=== PATIENT | female | born 1995 | race Caucasian/White ===

== ENCOUNTER 2017-04-02 13:33 | Emergency (ER) | payer OTHER ==
[2017-04-02 13:38] VITALS: BP 147/69; PULSE 125; RESP 18; TEMP 100.1
--- NOTE | 2017-04-02 13:59 | ED ---
General Adult HPI - General Chief complaint: Skin/Abscess/Foreign Body Stated complaint: Back Pain Source: patient, family, RN notes reviewed Mode of arrival: ambulatory Limitations: no limitations - History of Present Illness Initial comments: Chief complaint and history of present illness a 29-year-old female here with her grandmother. The patient has developing pilonidal abscess. She's been on Jones for pain and Bactrim prescribed by another hospital 2 days ago. Patient states the pain is getting progressively worse. She presents today with a fever 100.1. - Related Data Home Medications Medication Instructions Recorded Confirmed HYDROcodone/APAP 7.5-325MG [Jones 1 tab PO Q4H PRN 04/02/17 04/02/17 7.5-325] Sulfamethox-Tmp 800-160Mg [Bactrim 1 tab PO BID 04/02/17 04/02/17 DS 800-160 mg] Allergies Allergy/AdvReac Type Severity Reaction Status Date / Time No Known Allergies Allergy Verified 04/02/17 13:43 Review of Systems ROS Statement: Those systems with pertinent positive or pertinent negative responses have been documented in the HPI. Review of systems no other complaints this time no complaint of headache or sore throat. No chest pain or shortness of breath. No difficulty urinating. She does have a developing pilonidal abscess. No neuro deficits. All systems are reviewed. Patient denies any chronic medical problems. Surgeries include tonsillectomy. Family history grandmother had ovarian cancer. Patient denies ALLERGIES nonsmoker nondrinker. ROS Other: All systems not noted in ROS Statement are negative. Past Medical History Past Medical History: No Reported History History of Any Multi-Drug Resistant Organisms: None Reported Past Surgical History: Tonsillectomy Past Psychological History: No Psychological Hx Reported Smoking Status: Current every day smoker Past Alcohol Use History: None Reported Past Drug Use History: None Reported General Exam - General Exam Comments Initial Comments: General: The patient is awake and alert, complains of pain in the gluteal cleft. Diagnosed with developing pilonidal abscess starting 2 days ago. Vital signs temperature 100.1 pulse 125 respiratory rate 18 pulse ox 98% room air blood pressure 147/69. Eye: Pupils are equal, round and reactive to light, extra-ocular movements are intact ; there is normal conjunctiva bilaterally. No signs of icterus. Ears, nose, mouth and throat: There are moist mucous membranes and no oral lesions. Neck: The neck is supple, there is no tenderness Cardiovascular: Tachycardic heart rate, patient is febrile.. No murmur, rub or gallop is appreciated. Respiratory: Lungs are clear to auscultation, respirations are non-labored, breath sounds are equal. No wheezes, stridor, rales, or rhonchi. Gastrointestinal: Soft, non-distended, non-tender abdomen without masses or organomegaly noted. There is no rebound or guarding present. No CVA tenderness. Bowel sounds are unremarkable. Donation of the gluteal cleft with the assistance of fiorella finds read tender developing pilonidal abscess. Patient is particularly hairy. Back: There is no tenderness to palpation in the midline. There is no obvious deformity. Developing pilonidal abscess. Musculoskeletal: Normal ROM, no tenderness, There is no pedal edema. There is no calf tenderness or swelling. Sensation intact. Neurological: No complaints of any neuro deficits. Skin: No complaint of any rashes. Limitations: no limitations Course Vital Signs 04/02/17 13:34 Temperature 100.1 F H Pulse Rate 125 H Respiratory 18 Rate Blood Pressure 147/69 O2 Sat by Pulse 98 Oximetry Procedures - Procedures Initial comment: Procedure; patient gave permission to perform an incision and drainage of a pilonidal abscess. Abscess is identified. Clean well Betadine and rinsed normal saline and then numbed with 2% Xylocaine with good effect. A #11 scalpel was used then to open the abscess and drain the abscess. Culture was obtained and sent for laboratory. Bleeding was controlled. Large amount of pus was removed. The wound edges were then with sterile gauze. Patient will be removing the gauze in 24 hours. Patient is to continue her Bactrim and pain medication. She was advised to call follow-up emergency room nurse for culture results in 3 days to see if change in antibiotic is necessary. The procedure was performed with the assistance of nurse Ortega. Dr. Jang Disposition Clinical Impression: Pilonidal abscess of cleft Disposition: HOME SELF-CARE Condition: Stable Instructions: Abscess Incision and Drainage (ED), Pilonidal Cyst (ED) Additional Instructions: Continue with medications. Call follow-up nurse here in emergency room at [phone] for follow results of woundabscess culture and sensitivity. Do hot sitz baths daily. Referrals: None,Stated [Primary Care Provider] - 1-2 days Time of Disposition: 14:29
== END 2017-04-02 14:43 | disposition home or self-care (01) ==
LOC: EC 13:33
DX: L05.01 Pilonidal cyst with abscess (principal); F17.200 Nicotine dependence, unspecified, uncomplicated
CPT/HCPCS: 10080; 87070; 87205; 99283